=== PATIENT | male | born 1990 | race Caucasian/White ===

== ENCOUNTER 2022-06-06 13:57 | Emergency (ER) | payer MEDICAID, SELFPAY ==
[2022-06-06] VITALS (32 sets, daily range): BP systolic 119–148; BP diastolic 77–104; PULSE 58–107; RESP 9–23; O2SAT 93–100
--- NOTE | 2022-06-06 13:45 | RT.EKG_ITS ---
APPROVED REPORT Exam: Resting ECG Reason for Exam: seizure Patient Location: E HR:77 bpm ECG Measurements Heart Rate 77 AXIS LA 113 P 48 QRSd 82 QRS 74 QT 362 T 31 QTc 411 Conclusion Sinus rhythm...normal P axis, V-rate 60- 99. Sinus. Normal axis. No STEMI. I have reviewed and interpreted ECG and agree with software generated interpretation.
--- NOTE | 2022-06-06 13:55 | W.ED.GENAD ---
Discharge Plan Disposition Patient Disposition: HOME Condition: Stable Discharge Details Clinical Impression: Seizure Primary Care Provider: None,None ED Provider: Kimberley Zhu Home Meds and New Rx's Prescriptions: Continued sertraline [Zoloft] 25 mg Tablet 25 mg PO DAILY levetiracetam [Keppra] 1,000 mg Tablet 1,500 mg PO BID omeprazole 20 mg Tablet,Delayed Release (Dr/Ec) 20 mg PO DAILY Discharge Instructions Instructions: Recurrent Seizures in Adults (ED) Additional Instructions: Your presentation and lab work today appears likely consistent with a seizure which most likely is related to not taking your medication. Take your evening Keppra dose as scheduled and continue as directed. Call your neurologist Dr. Cantu's office tomorrow for discussion regarding medication management of your seizures. Follow-up with your scheduled appointment with Dr. Cantu on June 16. Return immediately to the emergency department if you develop any worsening or new concerning symptoms. Discharge Data Discharge Date/Time-TO BE ENTERED AT DEPARTURE: 06/06/22 17:33 Discharge Physician: Kimberley Zhu Medical Decision Making 1415 -- 32-year-old male with a known seizure disorder on Keppra presents for reported witnessed seizure outside prior to arrival. It was reported he was released from intermediate earlier this afternoon and missed 4 doses of Keppra over the past few days. He has followed neurologist Dr. Cantu at [facility] who prescribes 1500 mg of Keppra twice daily. He also endorses that he recently fell off the wagon and drank alcohol over the past 2 days. He states he has not drank any alcohol for the past several months. Patient diaphoretic and tachycardic on arrival. Blood pressure 143/104. Heart rate and blood pressure within normal limits upon my evaluation. Patient states I usually feel sweaty and he denies any symptoms of withdrawal. Suspect most likely alcohol withdrawal seizure as he has only been drinking over the past 2 days and denies any recent prolonged heavy alcohol use. As he has a history of seizures and missed 4 doses of his Keppra, suspect most likely seizure in the setting of medication noncompliance. He has a hematoma to his posterior head. Will obtain screening labs, CT head and cervical spine, chest x-ray. Will load with Keppra and give IV Tylenol and fluids and reassess. 1644 -- Labs and imaging reviewed. Bicarb and anion gap reflective of likely seizure activity. BMP repeated which noted normalization after fluids and observation. Troponin negative. Urinalysis no evidence of infection. Imaging unremarkable. Patient reassessed and he is requesting to go home. Discussed that I contacted his neurologist Dr. Cantu and have not yet heard back. Patient states he has a follow-up appointment with Dr. Cantu this month on June 16. He would prefer to leave at this time as he has a ride. He has remained hemodynamically stable and demonstrates no signs of alcohol withdrawal. Dr. Cantu called back prior to patient discharge and agreed with plan for resuming his normal Keppra dosing. Patient was informed that she recommends continuing his current Keppra dosing and to take his evening dose tonight. Advised to follow up with the primary care doctor for re-evaluation as needed. Usual and customary return precautions given prior to discharge. Medical Records Medical records reviewed: Yes I reviewed the patient's medical records. Imaging Data Radiologic Study: Radiologist's impression: CT HEAD ? CERVICAL SPINE WO CLINICAL HISTORY: ? fall with head injury, r/o fx/intracranial injury. ? TECHNIQUE:? Imaging Protocol: Axial computed tomography images with coronal and sagittal reformatted images were created and reviewed COMPARISON:? No exams were available for comparison FINDINGS: Head CT Ventricles and Extra axial spaces: Normal in size and morphology for the patient's age. Hemorrhage: None. Cerebral parenchyma: Normal. Midline shift: None. Brainstem/Cerebellum: Normal. Calvarium: No acute fracture.? Rounded bilateral lucencies in the posterior superior parietal bones have a chronic appearance.? Visualized Paranasal sinuses/Mastoids: Clear. Soft tissues: Right superior posterior scalp swelling. Cervical Spine CT BONES: Vertebral body heights are maintained. Alignment is normal. There is no evidence of acute fracture. Mild degenerative disc changes? are seen at C6-7.? . SOFT TISSUES: No paraspinal hematoma. The airway appears intact. No pneumothorax is seen at the lung apices. IMPRESSION: Head CT: Posterior scalp swelling.? No acute intracranial abnormality. C-spine CT: Mild degenerative changes at C6-7. no acute abnormality. XR CHEST 2V PA ? LATERAL CLINICAL HISTORY:? seizure, r/o acute disease TECHNIQUE:? 2D digital imaging was performed. COMPARISON:? No exams were available for comparison FINDINGS: MEDIASTINUM: Normal.? HEART: Normal. PULMONARY VASCULATURE: Normal. LUNGS: Clear. ? PLEURAL SPACE: No pleural effusion or pneumothorax. BONE:Unremarkable for age.? IMPRESSION: No acute abnormality.? Lab Data Lab results reviewed: Yes I reviewed the patient's lab results. Labs: Laboratory Tests Range/Units 06/06/22 06/06/22 06/06/22 14:00 14:00 14:00 WBC (4.4-10.8) 10^3/uL 11.73 H RBC (4.36-5.78) 10^6/uL 5.53 Hgb (13.5-17.5) g/dL 15.4 Hct (40.0-50.0) % 45.9 MCV (80-95) fL 83 MCH (27.0-33.0) pg 27.8 MCHC (32.0-36.0) % 33.6 RDW (11.8-14.1) % 12.7 Plt Count (130-400) 10^3/uL 288 MPV (8.0-11.0) fL 9.7 Immature Gran % 0.3 Neutrophils % 70.9 Lymphocytes % 20.2 Monocytes % 7.7 Eosinophils % 0.6 Basophils % 0.3 Nucleated RBC % (0.0-0.3) % 0.0 Absolute Neutrophils (1.2-6.7) 10^3/uL 8.32 H Absolute Lymphocytes (1.2-3.4) 10^3/uL 2.37 Absolute Monocytes (0.1-0.8) 10^3/uL 0.90 H Absolute Eosinophils (0.0-0.7) 10^3/uL 0.07 Absolute Basophils (0.0-0.2) 10^3/uL 0.04 Sodium (136-145) mmol/L 140 Potassium (3.5-5.1) mmol/L 3.4 L Chloride (98-107) mmol/L 102 Carbon Dioxide (21.0-32.0) mmol/L 20.4 L Anion Gap (3-11) mmol/L 17.6 H BUN (7-18) mg/dL 10 Creatinine (0.70-1.30) mg/dL 1.2 Estimated GFR/1.73 m2 (mL/min/1.73m2) >= 60.00 Glucose (74-106) mg/dL 103 Calcium (8.5-10.1) mg/dL 9.5 Magnesium (1.8-2.4) mg/dL 2.0 Total Bilirubin (0.2-1.0) mg/dL 0.5 AST (15-37) U/L 30 ALT (16-63) U/L 27 Alkaline Phosphatase (46-116) U/L 108 Troponin I (<or=60) ng/L < 50 Total Protein (6.4-8.2) g/dL 8.3 H Albumin (3.4-5.0) g/dL 4.7 Urine Color (Yellow) Urine Clarity (Clear) Urine pH (5-8) Ur Specific [place] (1.005-1.025) Urine Protein (Negative) mg/dL Urine Ketones (Negative) mg/dL Urine Blood (Negative) Urine Nitrite (Negative) Urine Bilirubin (Negative) Urine Urobilinogen (Up TO 0.2) EU/dL Ur Leukocyte Esterase (Negative) Urine RBC (0-2) HPF Urine WBC (0-5) HPF Ur Epithelial Cells (Negative) HPF Urine Crystals (Negative) HPF Urine Bacteria (Negative) HPF Urine Casts (Negative) LPF Urine Mucus (Negative) Ur Culture Indicated? Urine Glucose (Negative) mg/dL Urine Opiates Screen (Negative) Urine Methadone Screen (Negative) Ur Barbiturates Screen (Negative) Ur Tricyclics Screen (Negative) Ur Amphetamines Screen (Negative) U Benzodiazepines Scrn (Negative) Urine Cocaine Screen (Negative) Ur THC Screen (Negative) Ethyl Alcohol (<10) mg/dL < 3.0 Range/Units 06/06/22 06/06/22 06/06/22 15:15 15:15 17:10 WBC (4.4-10.8) 10^3/uL RBC (4.36-5.78) 10^6/uL Hgb (13.5-17.5) g/dL Hct (40.0-50.0) % MCV (80-95) fL MCH (27.0-33.0) pg MCHC (32.0-36.0) % RDW (11.8-14.1) % Plt Count (130-400) 10^3/uL MPV (8.0-11.0) fL Immature Gran % Neutrophils % Lymphocytes % Monocytes % Eosinophils % Basophils % Nucleated RBC % (0.0-0.3) % Absolute Neutrophils (1.2-6.7) 10^3/uL Absolute Lymphocytes (1.2-3.4) 10^3/uL Absolute Monocytes (0.1-0.8) 10^3/uL Absolute Eosinophils (0.0-0.7) 10^3/uL Absolute Basophils (0.0-0.2) 10^3/uL Sodium (136-145) mmol/L 141 Potassium (3.5-5.1) mmol/L 4.1 Chloride (98-107) mmol/L 105 Carbon Dioxide (21.0-32.0) mmol/L 26.4 Anion Gap (3-11) mmol/L 9.6 BUN (7-18) mg/dL 10 Creatinine (0.70-1.30) mg/dL 0.8 Estimated GFR/1.73 m2 (mL/min/1.73m2) >= 60.00 Glucose (74-106) mg/dL 76 Calcium (8.5-10.1) mg/dL 8.9 Magnesium (1.8-2.4) mg/dL Total Bilirubin (0.2-1.0) mg/dL AST (15-37) U/L ALT (16-63) U/L Alkaline Phosphatase (46-116) U/L Troponin I (<or=60) ng/L Total Protein (6.4-8.2) g/dL Albumin (3.4-5.0) g/dL Urine Color (Yellow) Yellow Urine Clarity (Clear) Clear Urine pH (5-8) 6.0 Ur Specific [place] (1.005-1.025) >= 1.030 H Urine Protein (Negative) mg/dL 100 H Urine Ketones (Negative) mg/dL 15 H Urine Blood (Negative) Negative Urine Nitrite (Negative) Negative Urine Bilirubin (Negative) Negative Urine Urobilinogen (Up TO 0.2) EU/dL 1.0 H Ur Leukocyte Esterase (Negative) Negative Urine RBC (0-2) HPF 0-2 Urine WBC (0-5) HPF 0-2 Ur Epithelial Cells (Negative) HPF Rare Urine Crystals (Negative) HPF Negative Urine Bacteria (Negative) HPF Negative Urine Casts (Negative) LPF Negative Urine Mucus (Negative) Moderate Ur Culture Indicated? No Urine Glucose (Negative) mg/dL Negative Urine Opiates Screen (Negative) Negative Urine Methadone Screen (Negative) Negative Ur Barbiturates Screen (Negative) Negative Ur Tricyclics Screen (Negative) Negative Ur Amphetamines Screen (Negative) Negative U Benzodiazepines Scrn (Negative) Negative Urine Cocaine Screen (Negative) Negative Ur THC Screen (Negative) Positive A Ethyl Alcohol (<10) mg/dL ECG Data Attestation: I personally reviewed and interpreted this ECG (s) as follows: Interpretation: Rate of 77, sinus, normal axis, no STEMI. HPI General Date/Time Provider Initiated Documentation: 06/06/22 14:07. Limitations to Documentation: no limitations. Information obtained by: patient. HPI Narrative: Patient is a 32-year-old male released from intermediate at 1 PM today who walked from intermediate to the mobile station where bystanders noted him to have seizure which lasted 1 to 2 minutes. Patient has a known seizure disorder and states he takes 1500 mg of Keppra twice daily. He states his Keppra as prescribed by neurologist Dr. Cantu at [facility]. He states his last dose of Keppra was 2 days ago and he has missed 4 doses. He states his last seizure was a few weeks ago. He states he had no symptoms prior to onset of the seizure which she states is normal for him. He states he has a mild headache and it was reported he hit the back of his head on the ground. He denies any other injuries. He states he had been taking naltrexone for help with his alcohol abuse but ran out of it recently. He states he has not drank alcohol for several months up until 2 days ago. He states he drank 1/5 of liquor 2 days ago and yesterday. He denies any symptoms of withdrawal. Related Data Home Medications Medication Instructions Recorded Confirmed levetiracetam 1,000 mg tablet 1,500 mg PO BID 06/06/22 06/06/22 (Keppra) omeprazole 20 mg tablet,delayed 20 mg PO DAILY 06/06/22 06/06/22 release sertraline 25 mg tablet (Zoloft) 25 mg PO DAILY 06/06/22 06/06/22 Allergies Allergy/AdvReac Type Severity Reaction Status Date / Time No Known Allergies Allergy Unverified 06/06/22 14:06 General Stated Complaint: Seizure DECLAN: 3 Review of Systems All systems reviewed & are unremarkable except as noted in HPI and below Constitutional Constitutional: Denies chills, Denies excessive sweating, Denies fatigue, Denies fever(s), Denies weakness and Denies weight loss Eyes Eyes: Reports system reviewed and no additional complaints, except as documented and Denies blurry vision ENT Ears, Nose, Mouth, and Throat: Denies vertigo, Denies dizziness, Denies otalgia, Denies nasal congestion, Denies sore throat and Denies throat swelling Cardiovascular Cardiovascular: Denies chest pain, Denies syncope, Denies rapid heart rate and Denies dyspnea Respiratory Respiratory: Denies chest congestion, Denies cough, Denies pain on inspiration and Denies dyspnea Gastrointestinal Gastrointestinal: Denies abdominal pain, Denies diarrhea and Denies vomiting Genitourinary Genitourinary: Denies hematuria, Denies dysuria and Denies flank pain Musculoskeletal Musculoskeletal: Denies back pain and Denies joint swelling Integumentary/Breasts Skin/Breast: Denies lesions and Denies rash Neurologic Neurologic: Denies behavioral changes, Denies confusion, Denies vertigo, Denies dizziness, Denies syncope, Denies localized weakness, Reports seizure-like activity and Denies weakness Psychiatric Psychiatric: Denies behavioral changes, Denies confusion and Denies depression Endocrine Endocrine: Denies excessive sweating and Denies fatigue Hematologic/Lymphatic Hematologic/Lymphatic: Denies easy bruising and Denies lymphadenopathy Allergic/Immunologic Allergic/Immunologic: Denies throat swelling PFSH All Active Problems (Updated 06/06/22 @ 17:10 by Kimberley Zhu DO) Seizure (Acute) Medical History (Updated 06/06/22 @ 17:10 by Kimberley Zhu DO) Seizure disorder Followed by Dr. Cantu @ [facility] Surgical History (Updated 06/06/22 @ 15:08 by Kimberley Zhu DO) No significant past surgical history Social History Smoking/Tobacco Use Status: Never Smoking risk assessment performed?: Yes Alcohol Intake: current Alcohol Intake frequency: 3 or more drinks per day Alcohol type: beer Drug use: Daily Substance use type: marijuana Do you feel safe at home: Yes Do you feel safe in your relationship?: Yes Exam Const General: cooperative and diaphoretic Orientation: alert, awake and oriented x3 HENMT Head: normal to inspection Head images: 1. Superficial abrasion/edema/tenderness. Ears: hearing grossly normal bilaterally, external ears normal and TM's normal bilaterally General nose exam: external nose normal Face and sinus: normal facial exam Mouth: oral mucosae normal and tongue normal Teeth and gingiva: dentition normal Throat: posterior oropharynx normal Eyes General: appearance normal, both eyes and all related structures Eyelids: eyelids normal Pupils: PERRL EOM: EOM intact bilaterally Neck Neck: normal visual inspection Lymphatic: no lymphadenopathy noted Chest Chest: normal inspection of the chest Resp Effort & Inspection: normal respiratory effort and able to speak in complete sentences Auscultation: clear to auscultation bilaterally Cardio Rate: tachycardic Rhythm: regular rhythm GI Inspection: normal to inspection Palpation: soft, not firm, no guarding, no hepatosplenomegaly, no masses and nontender Auscultation: hypoactive bowel sounds Back/Spine/Pelvis Back: no CVA tenderness Skin General skin exam: no rashes or lesions noted Neuro General: patient alert, patient awake, patient oriented x3, moves all extremities, no meningeal signs and no focal motor deficits Cognition: normal cognition Speech: speech normal Gait: normal gait Motor: muscle tone normal throughout and strength 5/5 throughout Sensory Exam: no sensory deficits noted Extrem General: normal to inspection, full ROM and capillary refill normal Psych Appearance: grossly normal Mental Status: mental status grossly normal Speech and Movement: speech and movement normal Affect: normal affect Thought Process: normal
[2022-06-06 14:17] LABS: Abs Immature Grans 0.03 10^3/uL (0.0-0.06); Absolute Basophil Count 0.04 10^3/uL (0.0-0.2); Absolute Eosinophil Count 0.07 10^3/uL (0.0-0.7); Absolute Lymphocyte Count 2.37 10^3/uL (1.2-3.4); Absolute Neutrophil Count 8.32 10^3/uL (1.2-6.7); Basophils % 0.3; Eosinophils % 0.6; HCT 45.9 % (40.0-50.0); HGB 15.4 g/dL (13.5-17.5); Immature Grans % 0.3; Lymphocytes % 20.2; MCH 27.8 pg (27.0-33.0); MCHC 33.6 % (32.0-36.0); MCV 83 fL (80-95); MPV 9.7 fL (8.0-11.0); Monocytes % 7.7; Neutrophils % 70.9; Platelet Count 288 10^3/uL (130-400); RBC 5.53 10^6/uL (4.36-5.78); RDW 12.7 % (11.8-14.1); RDW-SD 38.2 fL; WBC 11.73 10^3/uL (4.4-10.8)
[2022-06-06 14:35] LABS: ALT 27 U/L (16-63); AST 30 U/L (15-37); Albumin 4.7 g/dL (3.4-5.0); Alkaline Phosphatase 108 U/L (46-116); Anion Gap 17.6 mmol/L (3-11); BUN 10 mg/dL (7-18); Bilirubin, Total 0.5 mg/dL (0.2-1.0); CO2 20.4 mmol/L (21.0-32.0); CREATININE 1.2 mg/dL (0.70-1.30); Calcium 9.5 mg/dL (8.5-10.1); Chloride 102 mmol/L (98-107); Glucose 103 mg/dL (74-106); Potassium 3.4 mmol/L (3.5-5.1); Sodium 140 mmol/L (136-145); Total Protein 8.3 g/dL (6.4-8.2); Troponin I < 50 ng/L (<or=60)
[2022-06-06 14:42] LABS: ETHANOL BLOOD < 3.0 mg/dL (<10)
--- NOTE | 2022-06-06 15:00 | DI.RAD_ITS ---
Exam(s) XR CHEST 2V PA LATERAL EXAM: XR CHEST 2V PA LATERAL CLINICAL HISTORY: seizure, r/o acute disease TECHNIQUE: 2D digital imaging was performed. COMPARISON: No exams were available for comparison FINDINGS: MEDIASTINUM: Normal. HEART: Normal. PULMONARY VASCULATURE: Normal. LUNGS: Clear. PLEURAL SPACE: No pleural effusion or pneumothorax. BONE:Unremarkable for age. IMPRESSION: No acute abnormality. DATA REPOSITORY: RADIATION DOSE DELIVERED:
--- NOTE | 2022-06-06 15:00 | DI.CT_ITS ---
Exam(s) CT HEAD CERVICAL SPINE WO EXAM: CT HEAD CERVICAL SPINE WO CLINICAL HISTORY: fall with head injury, r/o fx/intracranial injury. TECHNIQUE: Imaging Protocol: Axial computed tomography images with coronal and sagittal reformatted images were created and reviewed COMPARISON: No exams were available for comparison FINDINGS: Head CT Ventricles and Extra axial spaces: Normal in size and morphology for the patient's age. Hemorrhage: None. Cerebral parenchyma: Normal. Midline shift: None. Brainstem/Cerebellum: Normal. Calvarium: No acute fracture. Rounded bilateral lucencies in the posterior superior parietal bones h ave a chronic appearance. Visualized Paranasal sinuses/Mastoids: Clear. Soft tissues: Right superior posterior scalp swelling. Cervical Spine CT BONES: Vertebral body heights are maintained. Alignment is normal. There is no evidence of acute frac ture. Mild degenerative disc changes are seen at C6-7. . SOFT TISSUES: No paraspinal hematoma. The airway appears intact. No pneumothorax is seen at the lung apices. IMPRESSION: Head CT: Posterior scalp swelling. No acute intracranial abnormality. C-spine CT: Mild degenerative changes at C6-7. no acute abnormality. RADIATION DOSE DELIVERED: 1,616.72mGy.cm Total DLP DATA REPOSITORY: All CT scans at this facility are submitted to the National Radiology Data Registry (NRDR) Dose Index Registry (DIR) with the [employer] ([employer]). RADIATION OPTIMIZATION: All CT scans at this facility use at least one of these dose optimization te chniques: automated exposure control; mA and/or kV adjustment per patient size (includes targeted exa ms where dose is matched to clinical indication); or iterative reconstruction.
[2022-06-06] MEDS: Normal Saline 1,000 ML 1000 ML IV (15:11)
[2022-06-06] MEDS: ACETAMINOPHEN 1,000 MG/100 ML BTL 400 MG IVPB (15:18)
[2022-06-06 15:42] LABS: Bilirubin Negative (Negative); Blood Negative (Negative); Clarity Clear (Clear); Glucose Negative (Negative); Ketones 15 mg/dL (Negative); Leukocyte Esterase Negative (Negative); Nitrite Negative (Negative); Specific Gravity >= 1.030 (1.005-1.025)
[2022-06-06 15:51] LABS: Bacteria Negative HPF (Negative); C & S Indicated? No; Casts Negative LPF (Negative); Crystals Negative HPF (Negative); Epithelial Cells Rare HPF (Negative); Mucus Moderate (Negative); RBC 0-2 HPF (0-2); WBC 0-2 HPF (0-5)
[2022-06-06 16:15] LABS: *AMPHETAMINES SCREEN URINE Negative (Negative); *BARBITURATES SCREEN URINE Negative (Negative); *BENZODIAZEPINES SCREEN URINE Negative (Negative); Cannabinoids THC Positive (Negative); Cocaine Screen,Urine Negative (Negative); METHADONE URINE SCREEN Negative (Negative); OPIATES URINE SCREEN Negative (Negative)
[2022-06-06 16:28] LABS: Tricyclic Antidepressants Negative (Negative)
[2022-06-06 17:36] LABS: Anion Gap 9.6 mmol/L (3-11); BUN 10 mg/dL (7-18); CO2 26.4 mmol/L (21.0-32.0); CREATININE 0.8 mg/dL (0.70-1.30); Calcium 8.9 mg/dL (8.5-10.1); Chloride 105 mmol/L (98-107); Glucose 76 mg/dL (74-106); Potassium 4.1 mmol/L (3.5-5.1); Sodium 141 mmol/L (136-145)
== END 2022-06-06 17:33 | disposition home or self-care (01) ==
LOC: ER 17:33
PROVIDERS: Emergency Provider Physician Assistant
DX: G40.909 Epilepsy, unspecified, not intractable, without status epilepticus (principal); S00.83XA Contusion of other part of head, initial encounter; R00.0 Tachycardia, unspecified; R61 Generalized hyperhidrosis; Z91.14 Patient's other noncompliance with medication regimen; W19.XXXA Unspecified fall, initial encounter
CPT/HCPCS: 36415; 80048; 80053; 80307; 93005; 96365; 96367; 99284; 70450; 71046; 72125; 80177; 80320; 81003; 81015; 83735; 84484; 85025; 93010; 99285; J0131; J1953